=== PATIENT | female | born 1955 | race Caucasian/White ===

== ENCOUNTER 2019-09-04 08:52 | Outpatient (CLI) | payer OTHER | END 2019-09-04 08:55 | disposition home or self-care (01) | LOC: SONOGRAMA 08:52 | DX: E04.2 Nontoxic multinodular goiter (principal) ==

== ENCOUNTER 2025-03-29 08:55 | Outpatient (CLI) | payer OTHER | END 2025-03-29 08:58 | disposition home or self-care (01) | LOC: SONOGRAMA 08:55 | PROVIDERS: ATTEND Pathology Anatomic Pathology & Clinical Pathology | DX: D34 Benign neoplasm of thyroid gland (principal); E04.1 Nontoxic single thyroid nodule ==